=== PATIENT | male | born 1955 ===

== ENCOUNTER 2021-10-04 21:45 | Inpatient (IN) | payer OTHER, MEDICARE ==
[~2021-10-04] VITALS: Ht 177.8 cm; Wt 108.9 kg
[2021-10-05 01:27] LABS: HEMOGLOBIN 13.7 gm/dl (14.0-17.5); RED BLOOD COUNT 4.48 M/UL (4.20-5.50); WHITE BLOOD COUNT 10.9 K/UL (4.5-11.0)
[2021-10-05 01:32] LABS: BUN/CREATININE RATIO 22 (0-10)
[2021-10-05] MEDS ORDERED: TRULICITY3 MG/0.5 M SQ (02:37)
[2021-10-05] MEDS ORDERED: JANUVIA100 MG PO (02:38)
[2021-10-05] MEDS ORDERED: LISINOPRIL5 MG PO (02:39)
[2021-10-05] MEDS ORDERED: PREGABALIN50 MG PO (02:39)
[2021-10-05] MEDS ORDERED: GLYBURIDE MICRON6 MG PO (02:40)
[2021-10-05] MEDS ORDERED: METFORMIN HCL1000 MG PO (02:40)
[2021-10-05] MEDS ORDERED: VITAMIN D21250 MCG PO (02:41)
[2021-10-09 02:23] LABS: BUN/CREATININE RATIO 28 (0-10)
[2021-10-09] MEDS ORDERED: ASPIRIN EC81 MG PO (08:50)
[2021-10-09] MEDS ORDERED: METOPROLOL SUCC25 MG PO (08:50)
[2021-10-09] MEDS ORDERED: ELIQUIS 5 MG TAB5 MG PO (08:50)
== END 2021-10-09 10:58 | disposition home or self-care (01) | DRG 273 ==
LOC: CDU 21:45 → PROG CARE 23:50 → CDU 10-05 00:07 → PROG CARE 10-09 10:58
PROVIDERS: Internal Medicine; Internal Medicine Nephrology; ADMIT Internal Medicine
PROC: 3E043XZ Introduction of Vasopressor into Central Vein, Percutaneous Approach (ICD-10-PCS; 2021-10-04)
PROC: 4A023FZ Measurement of Cardiac Rhythm, Percutaneous Approach (ICD-10-PCS; principal; 2021-10-05)
PROC: 4A0234Z Measurement of Cardiac Electrical Activity, Percutaneous Approach (ICD-10-PCS; 2021-10-05)
PROC: 02K83ZZ Map Conduction Mechanism, Percutaneous Approach (ICD-10-PCS; 2021-10-05)
PROC: B24BZZZ Ultrasonography of Heart with Aorta (ICD-10-PCS; 2021-10-05)
DX: I48.92 Unspecified atrial flutter (principal); Z20.822 Contact with and (suspected) exposure to COVID-19; N17.0 Acute kidney failure with tubular necrosis; K72.00 Acute and subacute hepatic failure without coma; I50.23 Acute on chronic systolic (congestive) heart failure; E87.2 Acidosis; M54.9 Dorsalgia, unspecified; Z96.653 Presence of artificial knee joint, bilateral; I95.9 Hypotension, unspecified; I11.0 Hypertensive heart disease with heart failure; E11.9 Type 2 diabetes mellitus without complications; E87.5 Hyperkalemia; Z79.01 Long term (current) use of anticoagulants; Z79.82 Long term (current) use of aspirin; Z88.8 Allergy status to other drugs, medicaments and biological substances; Z82.49 Family history of ischemic heart disease and other diseases of the circulatory system; Z80.42 Family history of malignant neoplasm of prostate; Z98.890 Other specified postprocedural states
CPT/HCPCS: ECHO; 36415; 74018; 80048; 80053; 81001; 82009; 82150; 82550; 82553; 82570; 82962; 83605; 83690; 83735; 83880; 84133; 84156; 84300; 84439; 84443; 84484; 85025; 85610; 93005; 93306; 93312; 93320; 93609; 93620; 93621; 94760; 99152; 99153; C1730; C1733; C1766; G0378; J1644; J1650; J2250; J2370; J2405; J3010; J7030; J7040; P9047

== ENCOUNTER 2021-10-12 19:09 | Inpatient (IN) | payer OTHER, MEDICARE ==
[~2021-10-12] VITALS: Ht 177.8 cm; Wt 105.9 kg
[~2021-10-12 19:09] MED LIST: ASPIRIN EC81 MG PO; ELIQUIS 5 MG TAB5 MG PO; GLYBURIDE MICRON6 MG PO; JANUVIA100 MG PO; LISINOPRIL5 MG PO; METFORMIN HCL1000 MG PO; METOPROLOL SUCC25 MG PO; PREGABALIN50 MG PO; TRULICITY3 MG/0.5 M SQ; VITAMIN D21250 MCG PO
[2021-10-12 19:47] LABS: HEMOGLOBIN 12.9 gm/dl (14.0-17.5); RED BLOOD COUNT 4.26 M/UL (4.20-5.50); WHITE BLOOD COUNT 7.2 K/UL (4.5-11.0)
[2021-10-12 20:11] LABS: BUN/CREATININE RATIO 20 (0-10)
[2021-10-13 03:24] LABS: BUN/CREATININE RATIO 18 (0-10)
[2021-10-13 03:36] LABS: HEMOGLOBIN 13.2 gm/dl (14.0-17.5); RED BLOOD COUNT 4.37 M/UL (4.20-5.50); WHITE BLOOD COUNT 7.5 K/UL (4.5-11.0)
[2021-10-13] MEDS ORDERED: XARELTO20 MG PO (09:35)
[2021-10-13 09:47] LABS: BUN/CREATININE RATIO 17 (0-10)
[2021-10-14 02:59] LABS: HEMOGLOBIN 13.9 gm/dl (14.0-17.5); RED BLOOD COUNT 4.61 M/UL (4.20-5.50); WHITE BLOOD COUNT 8.5 K/UL (4.5-11.0)
[2021-10-14 03:13] LABS: BUN/CREATININE RATIO 15 (0-10)
[2021-10-15 03:01] LABS: HEMOGLOBIN 13.3 gm/dl (14.0-17.5); RED BLOOD COUNT 4.42 M/UL (4.20-5.50); WHITE BLOOD COUNT 8.2 K/UL (4.5-11.0)
[2021-10-15 03:06] LABS: BUN/CREATININE RATIO 19 (0-10)
[2021-10-16 02:19] LABS: HEMOGLOBIN 12.8 gm/dl (14.0-17.5); RED BLOOD COUNT 4.27 M/UL (4.20-5.50); WHITE BLOOD COUNT 7.7 K/UL (4.5-11.0)
[2021-10-16 04:08] LABS: BUN/CREATININE RATIO 22 (0-10)
[2021-10-17] MEDS ORDERED: BETAPACE 80MG T80 MG PO (18:04)
== END 2021-10-17 20:50 | disposition home or self-care (01) | DRG 286 ==
LOC: ER1 19:09 → MED SURG 4 22:45 → CDU 22:45 → MED SURG 4 10-13 00:43 → PROG CARE 10-14 10:41
PROVIDERS: Internal Medicine; Nurse Practitioner; ADMIT Internal Medicine
PROC: 4A023N7 Measurement of Cardiac Sampling and Pressure, Left Heart, Percutaneous Approach (ICD-10-PCS; principal; 2021-10-17)
PROC: B2111ZZ Fluoroscopy of Multiple Coronary Arteries using Low Osmolar Contrast (ICD-10-PCS; 2021-10-17)
DX: I11.0 Hypertensive heart disease with heart failure (principal); I50.23 Acute on chronic systolic (congestive) heart failure; K72.00 Acute and subacute hepatic failure without coma; I48.92 Unspecified atrial flutter; E87.2 Acidosis; Z20.822 Contact with and (suspected) exposure to COVID-19; E87.6 Hypokalemia; I25.10 Atherosclerotic heart disease of native coronary artery without angina pectoris; E66.01 Morbid (severe) obesity due to excess calories; Z96.641 Presence of right artificial hip joint; E78.5 Hyperlipidemia, unspecified; E11.40 Type 2 diabetes mellitus with diabetic neuropathy, unspecified; E83.42 Hypomagnesemia; I48.91 Unspecified atrial fibrillation; Z79.01 Long term (current) use of anticoagulants; Z79.4 Long term (current) use of insulin; Z79.82 Long term (current) use of aspirin; Z87.19 Personal history of other diseases of the digestive system; Z83.3 Family history of diabetes mellitus; Z82.49 Family history of ischemic heart disease and other diseases of the circulatory system; Z80.0 Family history of malignant neoplasm of digestive organs; Z88.8 Allergy status to other drugs, medicaments and biological substances; Z68.33 Body mass index [BMI] 33.0-33.9, adult
CPT/HCPCS: 36415; 71045; 71046; 78452; 80048; 80053; 80061; 80076; 81001; 82550; 82553; 82962; 83036; 83605; 83735; 83880; 84100; 84132; 84439; 84443; 84484; 84550; 85025; 85027; 87040; 87081; 93005; 93017; 94760; 96374; 96375; 96376; 99152; 99153; 99285; A9502; C1769; C1894; G0378; J1160; J1644; J1940; J2185; J2250; J2270; J2405; J2785; J3010; J3475; J7040; Q9967